=== PATIENT | male | born 1985 | race Caucasian/White ===

== ENCOUNTER 2019-06-26 07:20 | Day surgery (SDC) | payer OTHER ==
[~2019-06-26] VITALS: Ht 175.3 cm; Wt 79.4 kg
[~2019-06-26 07:20] MED LIST: ALPRAZOLAM0.25 MG PO; CLONAZEPAM0.5 MG PO; TIMOLOL 0.5%-LAT5 ML OP
[2019-06-26] MEDS ORDERED: MULTI VITAMIN1 EACH PO (07:37)
--- NOTE | 2019-06-26 09:42 | NUR ---
06/26/19 0942 Sandhya Hernandez 5567-PATIENT ARRIVED TO PACU ON 10L MASK PLACED ON 6L. RR EVEN. PATIENT REACTIVE EYES OPEN VERY DROWSY. LIFTING HANDS. PATIENT ORIENTED TO PACU. 4 LAP SITES TO ABDOMEN SMALL DRAINAGE. SMALL DRAINAGE TO BANDAID TO ABDOMEN.
[2019-06-26] MEDS ORDERED: OXYCODONE HCL5 MG PO (10:04)
[2019-06-26] MEDS ORDERED: IBUPROFEN600 MG PO (10:05)
--- NOTE | 2019-06-26 10:18 | NUR ---
PT ARRIVES TO DS RM 5 FROM PACU AWAKE AND ALERT, RESP EVEN AND UNLABORED. SATS 97% ON RA. PT DENIES ANY NAUSEA, TOLERATING ICE CHIPS. PT STATES PAIN IN ABD 3/10 COMFORTABLE AND WILL NOTIFY RN WHEN HE WOULD LIKE MEDICATION. PT HAS GLASSES IN PLACE. ICED WATER AND CRACKERS PROVIDED. CALL LIGHT IN REACH.
--- NOTE | 2019-06-26 10:55 | NUR ---
PT USES CALL LIGHT TO ALERT RN OF WISH TO AMBULATE HALLWAY. PT SLOWLY CHANGES POSITION TO SITTING AT SIDE OF BED, DENIES NAUSEA. PT STATES SLIGHT DIZZINESS WITH AMBULATION, "I ALWAYS FEEL A LITTLE OFF WITH THESE GLASSES, THEY ARE AN OLD PRESCRIPTION." PT HAS STEADY GAIT WITH RN ASSIST. PT SHAKING WITH ANXIETY AND REQUESTS TO TAKE PERSONAL XANAX, DR. TATE NOTIFIED AND AGREEABLE. PT SIG OTHER AT BEDSIDE.
--- NOTE | 2019-06-26 12:15 | NUR ---
PT USES CALL LIGHT TO ALERT RN OF URGE TO VOID. PT UP TO BATHROOM WITH RN ASSIST, STEADY GAIT, ABLE TO VOID 300 MLS TEA COLORED URINE. PT IV REMOVED WNL, AND PT DRESSES SELF.
--- NOTE | 2019-06-26 12:37 | NUR ---
DC INSTRUCTIONS PRESENTED TO PT AND SIG OTHER, ALL QUESTIONS ADDRESSED. SIG OTHER PROVIDED PAIN PRESCRIPTION. PT DC'S FROM DS RM 5 WITH VOLUNTEER RIZWAN TO PERSONAL VEHICLE HOME.
--- NOTE | 2019-06-26 14:53 | NUR ---
PT STANDING IN , GOWN ON, AND WAITING FOR SURGERY PREP. HIS ARIELLE IS PRESENT AND IS GIVING SUPPORT. PT REQUESTED TO HAVE HIS GLASSES WITH HIM IN PACU-POOR EYESIGHT WILL UPSET HIM. GAVE REASURANCE THIS WILL HAPPEN. GAVE MORE REASURRANCE TO PT, EXTENDED A BLESSING. PT THANKED ME, AND WILL FOLLOW NEEDED
--- NOTE | 2019-06-28 16:41 | OR ---
[facility] [address] [facility] [place], [place] [address] Signed DATE OF OPERATION: 06/26/2019 SURGEON: Severiano Tate MD PREOPERATIVE DIAGNOSIS: Chronic acalculous cholecystitis. POSTOPERATIVE DIAGNOSES: 1. Chronic acalculous cholecystitis. 2. Market and congestion and chronic inflammation of liver. PROCEDURE PERFORMED: 1. Laparoscopic cholecystectomy with intraoperative cholangiogram. 2. Surgeon-directed fluoroscopy. 3. Laparoscopic liver biopsy, medial segment of left lobe of liver. ANESTHESIA: General endotracheal, Severiano Tirado CRNA., and local 20 mL of 0.25% Marcaine with epinephrine. INDICATION: This 34-year-old white man is a patient of TANISHA Shaikh in [facility], previously [facility]. The patient has had symptoms typical of biliary disease including significant right subcostal pain, sometimes radiating to the left side. It is worse after eating. He underwent an abdominal ultrasound on May 01, 2019, showing a heterogeneous pancreas as well as fatty infiltration of the liver and a very shrunken gallbladder. A shrunken gallbladder was notable considering he was n.p.o. at least 9 hours prior to the ultrasound. His liver enzymes were obtained showing an elevated bilirubin of 2.9, SGOT of 124, amylase of 69. He was on Accutane as a teen, which was not well tolerated. A CCK HIDA test was performed, which showed filling of the gallbladder but essentially no ejection fraction and reproduction of his symptoms. He is admitted at this time to undergo cholecystectomy preferred by laparoscopic approach, understanding the risks of bleeding, infection, bile duct injury, need for open procedure and other unforeseen complications. He understands this and wished to proceed. FINDINGS: Quite markedly inflamed and edematous and congested was the liver itself. It did not have specific cirrhotic changes, though it was clearly abnormal. The gallbladder was small in relation to the liver and this was tucked well between the medial segment of Electronically Signed By: SEVERIANO TATE MD 06/28/19 1641 PATIENT NAME: SEVERIANO BARRERA OPERATIVE REPORT DATE OF : 85 REPORT #: [id number] PHYSICIAN: SEVERIANO TATE MD PCP: ARSEN MAYER NP REPORT IS CONFIDENTIAL AND NOT TO BE RELEASED WITHOUT AUTHORIZATION [facility] [address] [place], [place] [address] Signed the left lobe of the liver and the right lobe. Excision was accomplished safely. There was marked good chronic inflammation of the gallbladder. Intraoperative cholangiogram was normal with small caliber bile ducts throughout and good emptying into the duodenum. The gallbladder itself had no stones. It clearly had chronic inflammation but no sign of cancer proper. A liver biopsy was obtained from the medial segment left lobe of the liver. Additionally, there was a small fascial defect at the umbilicus itself, which was not repaired at this time, but without large capacity in the defect nor any sign of actual herniation of intraabdominal viscus. DESCRIPTION OF PROCEDURE: The patient was brought to the operating room, given a general endotracheal anesthetic. Preoperative antibiotic Ancef was given. Sequential compression device stockings used and heparin subcutaneously administered. The abdomen was clipped and prepared with chlorhexidine solution and draped sterilely. Palpation of the umbilicus showed a small fascial defect there. An incision was made inferior to the umbilicus using an open Gisell cannula technique pneumoperitoneum was achieved to a level of 14 mmHg of carbon dioxide gas. Intraabdominal inspection showed no sign of ascites or carcinomatosis. The liver was markedly inflamed, congested and initially thought to be possibly cirrhotic, but ultimately not. It was soft and boggy, but clearly congested. The gallbladder itself was tucked between the redundant lobes of the liver and was considered likely to be challenging for cholecystectomy. Three additional trocars were placed in usual configuration in the subxiphoid, right midclavicular, and right anterior axillary line. The gallbladder was grasped and elevated cephalad. Using blunt electrocautery dissection with meticulous care, the triangle of Calot was dissected free ultimately identifying the cystic duct and the cystic arterial areas. The cystic artery was doubly clipped, then divided. The cystic duct was dissected free quite clearly and a clip applied across the gallbladder cystic duct junction. A transverse choledochotomy was made in the cystic duct and retrograde milking of the cystic duct showed an egress of thickened clear bile. Using the Stone type cholangiocatheter, intraoperative cholangiography was undertaken showing free flow of contrast in the biliary tree with prompt emptying into the duodenum. The biliary tree was small in caliber. There was no sign of filling defect or other abnormality including retrograde views. Incidental pancreatogram was noted. The catheter was removed and the cystic duct was triply clipped and divided in a retrograde fashion. The gallbladder was placed in an endobag and extracted through the epigastric port site, opened on the back table and found to have chronic inflammation. No sign of neoplasm. No stones. Irrigation was undertaken in the subhepatic space. Hemostasis was assured with electrocautery. A small amount of Po hemostatic agent was insufflated to the subhepatic space. Given the pathologic appearance of the liver, a biopsy was deemed warranted. Through a separate percutaneous approach under direct visualization a biopsy gun device Electronically Signed By: SEVERIANO TATE MD 06/28/19 1641 PATIENT NAME: SEVERIANO BARRERA OPERATIVE REPORT DATE OF : 85 REPORT #: [id number] PHYSICIAN: SEVERIANO TATE MD PCP: ARSEN MAYER NP REPORT IS CONFIDENTIAL AND NOT TO BE RELEASED WITHOUT AUTHORIZATION [facility] [address] [place] [id number] Signed was used to biopsy the medial segment of the left lobe of the liver. The biopsy site was cauterized and some Po applied to it as well. Irrigation was undertaken. There was no sign of bleeding. Excess irrigation fluid was suctioned free. The trocars were removed under direct visualization showing no sign of bleeding. The infraumbilical fascial incision was reapproximated with interrupted 0 Vicryl suture. An additional closure of the mid line infraumbilical fascial incision with interrupted 0 PDS suture was undertaken as well. The skin was closed with interrupted 3-0 Vicryl. Steri-Strips were applied. The patient was ultimately extubated and transferred to recovery in good condition having suffered no complication. Sponge, needle, and instrument counts reported as correct x3. MD BRIANNE Harrison/PAULA /[id number] cc: TANISHA Shaikh Dr, Copies: ~ Electronically Signed By: SEVERIANO TATE MD 06/28/19 1641 PATIENT NAME: SEVERIANO BARRERA OPERATIVE REPORT DATE OF : 85 REPORT #: [id number] PHYSICIAN: SEVERIANO TATE MD PCP: ARSEN MAYER NP REPORT IS CONFIDENTIAL AND NOT TO BE RELEASED WITHOUT AUTHORIZATION
--- NOTE | 2019-06-30 18:27 | PATH ---
[facility] [address] [place], [place] [address] Signed SPECIMEN(S): A GALLBLADDER SPECIMEN(S): B MEDIAL SEGMENT LEFT LOBE SPECIMEN SOURCE: A. GALLBLADDER B. MEDIAL SEGMENT LEFT LOBE CLINICAL HISTORY: Chronic cholecystitis. FINAL PATHOLOGIC DIAGNOSIS: A. Gallbladder, cholecystectomy: - Chronic cholecystitis. - No dysplasia or malignancy identified. B. Liver, medial segment left lobe, needle biopsy: - Marked macrovesicular steatosis with focal active inflammation (steatohepatitis) and lobular fibrosis. See comment. COMMENT: Sections show marked macrovesicular steatosis (>95%) with hepatocyte ballooning, lobular necroinflammation, and intracellular Laura's hyaline inclusions. Lobular fibrosis is seen (trichrome and reticulin stains), suggesting prior bouts of active steatohepatitis. Portal tracts show mild portal lymphoplasmacytic inflammation without interface activity. Bile ducts are normal in number and show no damage. No viral cytopathic change is present. There is no abnormal iron accumulation (iron stain) and no evidence of alpha-1 antitrypsin deficiency (PAS/D). The presence of intracellular Laura's hyaline inclusions is suggestive of alcoholic-induced fatty liver disease, but correlation with clinical history is required. As part of [facility] Quality Improvement Program, this case was reviewed by another member of our pathology staff. NAL:cml:C2NR MICROSCOPIC EXAMINATION: Histologic sections of all submitted blocks are examined by light microscopy. These findings, together with the gross examination, support the pathologic diagnosis. GROSS DESCRIPTION: PATIENT NAME: SEVERIANO BARRERA PATHOLOGY DATE OF : 85 REPORT #: [id number] PHYSICIAN: JED MESA PCP: ARSEN MAYER NP REPORT IS CONFIDENTIAL AND NOT TO BE RELEASED WITHOUT AUTHORIZATION [facility] [address] [place], [place] [address] Signed Two specimens are received in two containers, labeled "JM." A. The specimen, labeled "JM, gallbladder," is received in formalin and consists of Specimen: Previously opened gallbladder. Dimensions: 6.5 x 2.6 x 2.2 cm. Serosa: Violaceous and smooth. Cystic Duct: Unobstructed. Calculi: Not grossly identified. Mucosa: Dark brown and velvety. Wall thickness: 0.2-0.4 cm. Lymph node: No pericystic lymph nodes are grossly identified. Additional: None. Produce Runner sections are submitted in cassette (A1). B. The specimen, labeled "JM, medial segment left lobe of liver," is received in formalin and consists of a single 1.3 cm in length x 0.1 cm in diameter, clarke-brown needle tissue core. The specimen is dyed green with a diluted ink and entirely submitted in (B1). AM (under the direct supervision of a pathologist) The Gross Description was prepared using a voice recognition system. The report was reviewed for accuracy; however, sound-alike word errors, addition and/or deletions may occur. If there is any question about this report, please contact Client Services. PERFORMING LABORATORY: The technical component was performed by [facility], [address] [place] [id number] ([employer]: Elisha Chowdhury MD; CLIA# [id number]). [facility], [address] [place] [id number] (CLIA# [id number]). Diagnostician: Oneida Banks MD Pathologist Electronically Signed 06/30/2019 Copies: ~ PATIENT NAME: SEVERIANO BARRERA PATHOLOGY DATE OF : 85 REPORT #: [id number] PHYSICIAN: JED PATHOLOGY PCP: ARSEN MAYER NP REPORT IS CONFIDENTIAL AND NOT TO BE RELEASED WITHOUT AUTHORIZATION
== END 2019-06-26 12:30 | disposition home or self-care (01) ==
LOC: DS 07:20 → OPS 07:20
PROVIDERS: Surgery
PROC: 0FT44ZZ Resection of Gallbladder, Percutaneous Endoscopic Approach (ICD-10-PCS; 2019-06-26)
PROC: BF13YZZ Fluoroscopy of Gallbladder and Bile Ducts using Other Contrast (ICD-10-PCS; 2019-06-26)
PROC: 0F923ZX Drainage of Left Lobe Liver, Percutaneous Approach, Diagnostic (ICD-10-PCS; principal; 2019-06-26 08:45)
DX: K81.1 Chronic cholecystitis (principal); K75.81 Nonalcoholic steatohepatitis (NASH); K74.0 Hepatic fibrosis; F41.1 Generalized anxiety disorder; Z79.899 Other long term (current) drug therapy
CPT/HCPCS: 00790; 74300; J0330; J0690; J1100; J1885; J2250; J2405; J2704; J2765; J3010; J7120; Q9967

== ENCOUNTER 2019-06-30 12:38 | Emergency (ER) | payer OTHER ==
[~2019-06-30] VITALS: Ht 175.3 cm; Wt 79.4 kg
[~2019-06-30 12:38] MED LIST changes: +IBUPROFEN600 MG PO; +MULTI VITAMIN1 EACH PO; +OXYCODONE HCL5 MG PO
--- OUTSIDE RECORDS SUMMARY | 2019-06-30 12:42 | XMS ---
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 [place] VISIT COUNT (12 MO.) 1 [place] TOTAL 1 NOTE: Visits indicate total known visits. ED/UCC VISIT TRACKING (12 MO.) 06/30/2019 12:39 BARRERA Gutierrez [place] TYPE: Emergency COMPLAINT: - POST SURGERY SWELLING INPATIENT VISIT TRACKING (12 MO.) No inpatient visits to display in this time frame [email or web address]
[2019-06-30] MEDS ORDERED: BRIMONIDINE TART5 ML OPTH (13:21)
== END 2019-06-30 15:00 | disposition home or self-care (01) ==
LOC: ED 12:38
DX: K91.89 Other postprocedural complications and disorders of digestive system (principal); F41.9 Anxiety disorder, unspecified; N50.89 Other specified disorders of the male genital organs; Z88.5 Allergy status to narcotic agent; Z79.899 Other long term (current) drug therapy
CPT/HCPCS: 99283